=== PATIENT | female | born 2000 | race Caucasian/White ===

== ENCOUNTER 2018-02-21 07:59 | Emergency (ER) | payer OTHER | END 2018-02-21 09:06 | disposition home or self-care (01) | LOC: M ED 07:59 | DX: M54.41 Lumbago with sciatica, right side (principal); M54.42 Lumbago with sciatica, left side; E28.2 Polycystic ovarian syndrome; Z88.1 Allergy status to other antibiotic agents; Z79.84 Long term (current) use of oral hypoglycemic drugs | CPT/HCPCS: 99283 ==

== ENCOUNTER 2018-06-27 16:16 | Emergency (ER) | payer OTHER | END 2018-06-27 17:10 | disposition home or self-care (01) | LOC: M ED 16:16 | DX: M25.531 Pain in right wrist (principal); E28.2 Polycystic ovarian syndrome; Z87.81 Personal history of (healed) traumatic fracture; Z97.5 Presence of (intrauterine) contraceptive device; Z79.899 Other long term (current) drug therapy; Z88.1 Allergy status to other antibiotic agents | CPT/HCPCS: 73110 ==